=== PATIENT | female | born 1995 | race Two or more races ===

== ENCOUNTER → 2023-06-01 | Emergency (ER) | payer OTHER ==
[~2023-06-01] VITALS: Ht 162.6 cm; Wt 65.8 kg
== END | disposition home or self-care (01) ==
LOC: ER 20:58
DX: L03.90 Cellulitis, unspecified (principal); T63.441A Toxic effect of venom of bees, accidental (unintentional), initial encounter; Y92.89 Other specified places as the place of occurrence of the external cause

== ENCOUNTER 2023-07-12 18:27 | Emergency (ER) | payer OTHER ==
[~2023-07-12] VITALS: Ht 162.6 cm; Wt 65.8 kg
[2023-07-12] MEDS ORDERED: NIGHTTIME SLEEP50 MG PO (20:30)
[2023-07-12] MEDS ORDERED: PEPCID AC20 MG PO (20:30)
[2023-07-12] MEDS ORDERED: CEFDINIR300 MG PO (20:30)
== END 2023-07-12 21:11 ==
LOC: ER 18:28
DX: L03.90 Cellulitis, unspecified (principal); Z91.030 Bee allergy status

== ENCOUNTER 2024-03-17 04:03 | Emergency (ER) | payer OTHER ==
[~2024-03-17] VITALS: Ht 162.6 cm; Wt 65.8 kg
[~2024-03-17 04:03] MED LIST: CEFDINIR300 MG PO; NIGHTTIME SLEEP50 MG PO; PEPCID AC20 MG PO
[2024-03-17] MEDS ORDERED: PROMETHAZINE HCL 50 MG/ML AMPUL IM STA (04:55)
[2024-03-17] MEDS ORDERED: FAMOTIDINE/PF 20 MG/2 ML VIAL IV PUSH STA (04:55)
[2024-03-17] MEDS ORDERED: 0.9 % SODIUM CHLORIDE 1,000 ML IV ONE (05:00)
[2024-03-17 05:26] LABS: HEMATOCRIT 38.5 % (36.0-45.00); HEMOGLOBIN 13.7 g/dL (12.0-15.00); MEAN CELL VOLUME 99.1 fL (80.00-100.00); MEAN CORPUSCULAR HEMOGLOBIN 35.3 pg (27.00-32.0); MEAN CORPUSCULAR HGB CONC 35.6 g/dl (32.0-36.0); PLATELET COUNT 232 K/uL (150-450); RED BLOOD COUNT 3.89 M/uL (4.00-6.00); RED CELL DISTRIBUTION WIDTH 12.7 % (11.5-14.5)
[2024-03-17 05:47] LABS: INR 0.95; PARTIAL THROMBOPLASTIN TIME 24.4 SECONDS (22.0-34.0); PROTHROMBIN TIME 10.4 SECONDS (9.0-11.5)
[2024-03-17 07:00] LABS: ALKALINE PHOSPHATASE 56 U/L (50-136); ALT/SGPT 14 U/L (12-78); AMYLASE 66 U/L (25-115); ANION GAP 9 (10.0-20.0); AST/SGOT 18 U/L (15-37); BILIRUBIN TOTAL 0.44 mg/dL (0.3-1.2); BILIRUBIN,UNCONJUGATED 0.34 mg/dL (0.0-0.6); BLOOD UREA NITROGEN 16 mg/dL (7-18); BUN CREA RATIO 18 (7.0-25.0); CALCIUM 9.3 mg/dL (8.5-10.1); CARBON DIOXIDE 28 mEq/L (21-32); CHLORIDE 107 mmol/L (98-107); GFR 74.02; GLOBULINA 3.2 G/DL (2.4-3.5); GLUCOSE FASTING 138 mg/dL (65-100); LIPASE 36 U/L (13-75); OSMOLALITY SERUM 283 MOSM/KG (275-295); POTASSIUM 3.92 mEq/L (3.5-5.1); SODIUM 140 mmol/L (136-145); TOTAL PROTEIN 7.2 gm/dL (6.4-8.2)
[2024-03-17 07:10] LABS: HCG QUANTITATIVE < 1 mUI/mL (1-3)
[2024-03-17 07:36] LABS: PH,URINE 8.5 (5.0-8.0); URINE APPEARANCE Clear; URINE BILIRRUBIN Negative (NEGATIVE); URINE BLOOD Trace; URINE COLOR Yellow; URINE GLUCOSE Negative (NEGATIVE); URINE KETONE Negative (NEGATIVE); URINE LEUKOCYTE Trace; URINE NITRATE Negative; URINE PROTEIN 30 (NEGATIVE); URINE UROBILINOGEN 0.2 E.U./dl
[2024-03-17 07:40] LABS: URINE BACTERIA 4011.8 uL (0.0-1933); URINE EPITHELIAL CELLS 38.6 uL (0.0-38.8); URINE RBC 6.4 uL (0.0-20.8); URINE WBC 31.5 uL (0.0-23.2)
[2024-03-17 07:47] LABS: URINE CAST 0.91 uL (0.0-1.40)
[2024-03-17 07:54] LABS: URINE CRYSTALS FEW /HPF
[2024-03-17 12:16] VITALS: BP 110/62; O2SAT 98
== END 2024-03-17 12:18 | disposition home or self-care (01) ==
LOC: ER 04:03
PROVIDERS: General Practice
DX: R11.10 Vomiting, unspecified (principal); Z88.0 Allergy status to penicillin; Z91.038 Other insect allergy status

== ENCOUNTER 2024-04-23 18:59 | Emergency (ER) | payer OTHER ==
[~2024-04-23] VITALS: Ht 162.6 cm; Wt 65.8 kg
[2024-04-23] MEDS ORDERED: KETOROLAC TROMETHAMINE 30 MG VIAL IV STA (19:51)
[2024-04-23] MEDS ORDERED: METHYLPREDNISOLONE SOD SUCC 125 MG VIAL IV STA (19:51)
== END 2024-04-23 21:25 | disposition home or self-care (01) ==
LOC: ER 19:01
DX: T63.441A Toxic effect of venom of bees, accidental (unintentional), initial encounter (principal); Y93.89 Activity, other specified; Y92.89 Other specified places as the place of occurrence of the external cause; Y99.9 Unspecified external cause status; Z88.0 Allergy status to penicillin; Z91.030 Bee allergy status

== ENCOUNTER 2025-01-07 14:12 | Emergency (ER) | payer OTHER ==
[~2025-01-07] VITALS: Ht 162.6 cm; Wt 72.6 kg
[2025-01-07] MEDS ORDERED: LIDOCAINE HCL 1% 10ML VIAL ONE (16:12)
[2025-01-07] MEDS ORDERED: TETANUS & DIPHTHERIA TOX,ADULT 0.5 ML VIAL IM ONE (16:15)
[2025-01-07] MEDS ORDERED: DIPHTH,PERTUSS(ACELL),TET VAC 0.5 ML SYRINGE IM ONE (16:19)
== END 2025-01-07 17:00 | disposition home or self-care (01) ==
LOC: ER 14:12
DX: S61.411A Laceration without foreign body of right hand, initial encounter (principal); W25.XXXA Contact with sharp glass, initial encounter; Y93.89 Activity, other specified; Y92.89 Other specified places as the place of occurrence of the external cause; Y99.8 Other external cause status; Z88.0 Allergy status to penicillin; Z91.018 Allergy to other foods

== ENCOUNTER 2025-01-17 13:26 | Emergency (ER) | payer OTHER ==
[~2025-01-17] VITALS: Ht 162.6 cm; Wt 72.6 kg
== END 2025-01-17 14:54 | disposition home or self-care (01) ==
LOC: ER 13:26
DX: Z48.02 Encounter for removal of sutures (principal); Z88.6 Allergy status to analgesic agent; Z91.030 Bee allergy status